=== PATIENT | male | born 1965 | race Caucasian/White ===

== ENCOUNTER 2021-07-15 18:18 | Emergency (ER) | payer OTHER ==
[~2021-07-15 18:18] MED LIST: ASPIRIN EC81 MG PO; ATORVASTATIN CA20 MG PO; AUGMENTIN 875-1 EACH PO; BENADRYL25 MG PO; IBUPROFEN600 MG PO; IMDUR ER TAB 3030 MG PO; NICOTINE PATCH1 EAC1 TD; NITROGLYCERIN0.4 MG SL; PREDNISONE 50 M50 MG PO; PROTONIX 20 MG20 MG PO; ZITHROMAX250 MG PO; ZOFRAN ODT 4 MG4 MG PO; ZOFRAN ODT 4 MG4 MG SL
[2021-07-15 20:52] LABS: HEMOGLOBIN 16.7 gm/dl (14.0-17.5); RED BLOOD COUNT 5.52 M/UL (4.20-5.50); WHITE BLOOD COUNT 9.2 K/UL (4.5-11.0)
[2021-07-15 21:24] LABS: BUN/CREATININE RATIO 20 (0-10)
== END 2021-07-15 22:42 | disposition home or self-care (01) ==
LOC: ER1 18:18
PROVIDERS: Physician Assistant
DX: J02.9 Acute pharyngitis, unspecified (principal); J30.9 Allergic rhinitis, unspecified; R42 Dizziness and giddiness; R11.0 Nausea; H65.199 Other acute nonsuppurative otitis media, unspecified ear; F17.210 Nicotine dependence, cigarettes, uncomplicated; I25.10 Atherosclerotic heart disease of native coronary artery without angina pectoris; Z20.822 Contact with and (suspected) exposure to COVID-19; I11.9 Hypertensive heart disease without heart failure; E11.9 Type 2 diabetes mellitus without complications; Z79.84 Long term (current) use of oral hypoglycemic drugs; E78.5 Hyperlipidemia, unspecified; Z79.02 Long term (current) use of antithrombotics/antiplatelets
CPT/HCPCS: 0240U; 80053; 85025; 87081; 87880; 99283

== ENCOUNTER 2022-02-01 20:16 | Observation (INO) | payer BC ==
[~2022-02-01] VITALS: Ht 167.6 cm; Wt 89.4 kg
[2022-02-01 21:09] LABS: HEMOGLOBIN 16.5 gm/dl (14.0-17.5); RED BLOOD COUNT 5.42 M/UL (4.20-5.50); WHITE BLOOD COUNT 8.8 K/UL (4.5-11.0)
[2022-02-01 21:33] LABS: BUN/CREATININE RATIO 18 (0-10)
[2022-02-03 06:30] LABS: HEMOGLOBIN 16.6 gm/dl (14.0-17.5); RED BLOOD COUNT 5.48 M/UL (4.20-5.50)
[2022-02-03 07:06] LABS: BUN/CREATININE RATIO 19 (0-10)
[2022-02-03] MEDS ORDERED: ATORVASTATIN CA20 MG PO (08:44)
[2022-02-03] MEDS ORDERED: METFORMIN HCL500 MG PO (08:44)
[2022-02-03] MEDS ORDERED: ASPIRIN EC81 MG PO (08:44)
[2022-02-03] MEDS ORDERED: CARVEDILOL12.5 MG PO (08:44)
== END 2022-02-03 11:14 | disposition home or self-care (01) ==
LOC: ER1 20:16 → CDU 21:44 → M/S 21:44 → CDU 21:44 → M/S 02-02 13:11
PROVIDERS: Emergency Medicine; Internal Medicine; ADMIT Internal Medicine
DX: R07.89 Other chest pain (principal); E78.5 Hyperlipidemia, unspecified; I10 Essential (primary) hypertension; E11.9 Type 2 diabetes mellitus without complications; I25.10 Atherosclerotic heart disease of native coronary artery without angina pectoris; F17.210 Nicotine dependence, cigarettes, uncomplicated; Z91.19 Patient's noncompliance with other medical treatment and regimen
CPT/HCPCS: ECHO; 71045; 78452; 80048; 80053; 82550; 82553; 82962; 83036; 83735; 83880; 84484; 85025; 93005; 93017; 93306; 96372; 99285; A9502; G0378; J1650; J2785

== ENCOUNTER → 2022-02-27 | Emergency (ER) | payer BC ==
[~2022-02-27] MED LIST changes: +CARVEDILOL12.5 MG PO; +KENALOG OINT 0.15 GM TOP; +METFORMIN HCL500 MG PO
== END | disposition home or self-care (01) ==
LOC: ER1 08:27
DX: L20.9 Atopic dermatitis, unspecified (principal); I10 Essential (primary) hypertension; E11.9 Type 2 diabetes mellitus without complications; F17.210 Nicotine dependence, cigarettes, uncomplicated; Z88.8 Allergy status to other drugs, medicaments and biological substances; Z79.02 Long term (current) use of antithrombotics/antiplatelets; Z79.84 Long term (current) use of oral hypoglycemic drugs
CPT/HCPCS: 99282